=== PATIENT | male | born 1935 | race Caucasian/White ===

== ENCOUNTER 2016-05-27 17:45 | Emergency (ER) | payer OTHER ==
[~2016-05-27] VITALS: Ht 167.6 cm; Wt 74.8 kg
[~2016-05-27 17:45] MED LIST: GLYB5TAB8 PO; MEC25T PO
[2016-05-27 18:06] VITALS: BP 166/78
[2016-05-27 18:57] LABS: Basophils # (auto) 0 uL; Basophils % (auto) 0.5 % (0.0-2.0); Eosinophils # (auto) 0.1 uL; Eosinophils % (auto) 1.8 % (0.0-7.0); Hematocrit 43.3 % (41.0-53.0); Hemoglobin 14.8 g/dL (13.5-17.5); Lymphocytes % (auto) 24.2 % (10.0-50.0); Mean Corpuscular Hemoglobin 28.8 pg (28.0-32.0); Mean Corpuscular Hgb Conc. 34.2 g/dL (32.0-36.0); Mean Corpuscular Volume 84.1 fL (80.0-100.0); Mean Platelet Volume 8.5 fL (7.4-10.4); Monocytes # (auto) 0.5 uL; Monocytes % (auto) 5.8 % (0.0-12.0); Neutrophils # (auto) 5.6 uL; Neutrophils % (auto) 67.7 % (37.0-80.0); Platelet Count (auto) 254 10^3/uL (140-450); Red Cell Distribution Width 13.5 % (11.6-16.0); White Blood Cell 8.2 10^3/uL (4.4-10.8)
[2016-05-27 19:31] LABS: Anion Gap 11 (5-15); BUN/Creatinine Ratio 14.7; Blood Urea Nitrogen 15 mg/dL (7-18); Calcium 8.5 mg/dL (8.5-10.1); Carbon Dioxide 25 mmol/L (21-32); Chloride 108 mmol/L (98-107); GFR African American 90 mL/min; GFR Non-African American 74 mL/min; Glucose 249 mg/dL (74-106); Potassium 4.1 mmol/L (3.5-5.1); Sodium 144 mmol/L (136-145)
== END 2016-05-27 21:47 | disposition left against medical advice (07) ==
LOC: ER 17:47
DX: M54.9 Dorsalgia, unspecified (principal); M25.519 Pain in unspecified shoulder; Z53.21 Procedure and treatment not carried out due to patient leaving prior to being seen by health care provider
CPT/HCPCS: 36415; 80048; 84484; 85025; 93005